=== PATIENT | male | born 1990 | race Caucasian/White ===

== ENCOUNTER 2021-12-07 01:54 | Emergency (ER) | payer MEDICAID ==
[~2021-12-07] VITALS: Ht 177.8 cm; Wt 90.7 kg
[2021-12-07 02:00] VITALS: BP 146/77
--- NOTE | 2021-12-07 02:00 | NUR ---
TO BED AMBULATORY
--- NOTE | 2021-12-07 02:15 | NUR ---
31 Y/O MALE BIB SELF, C/O TESTICLE PAIN X1 DAY. PATIENT PRESENTS TO ED WITH PAIN THAT RADIATES FROM TESTICLE TO EPIGASTRIC REGION. PT STATES IT FEELS LIKE A SCRAPING SENSATION, VOMITED X2 FROM THE PAIN (BLOOD NOTED IN SECOND VOMIT), PT HAS HAD A COUGH LAST WEEK. PT ALSO STATES HE BELIVES IT IS BECAUSE HE "PUSHES TOO HARD" WHEN HAVING A BM. PAIN RELIVED FROM HOT BATH. DENIES DIARRHEA; SKIN IS PINK/WARM/DRY; AAOX4 WITH EVEN AND STEADY GAIT; LUNGS CLEAR BL; HR EVEN AND REGULAR; PT DENIES ANY FEVER, CP, SOB, OR COUGH AT THIS TIME; PATIENT STATES PAIN OF 0/10 AT THIS TIME; VSS; PATIENT POSITIONED FOR COMFORT; HOB ELEVATED; BEDRAILS UP X1; BED DOWN. ER MD MADE AWARE OF PT STATUS. DENIES PMH, ALLERGIES, AND MEDS
[2021-12-07 02:38] LABS: APPEARANCE,URINE CLEAR (CLEAR); BILIRUBIN,URINE NEGATIVE (NEGATIVE); BLOOD, URINE NEGATIVE (NEGATIVE); COLOR,URINE YELLOW (YELLOW); LEUKOCYTE ESTERASE ,URINE NEGATIVE (NEGATIVE); NITRITE, URINE NEGATIVE (NEGATIVE); UGLUCOSE NEGATIVE (NEGATIVE)
[2021-12-07 02:51] LABS: RBC,URINE 0-5 /HPF (0-5); WBC,URINE 0-5 /HPF (0-5)
[2021-12-07] MEDS ORDERED: IBUPROFEN 800 MG TAB PO ONE (02:55)
--- NOTE | 2021-12-07 03:01 | NUR ---
ER AT BEDSIDE
--- NOTE | 2021-12-07 03:29 | NUR ---
Ultrasound at bedside.
[2021-12-07] MEDS ORDERED: NACL 0.9% 1,000 ML IV SCH (04:30)
--- NOTE | 2021-12-07 05:23 | NUR ---
PT RETURN FROM CT
--- NOTE | 2021-12-07 07:41 | NUR ---
GAVE TRANSFER OF CARE REPORT TO SAGE CALVO
[2021-12-07 08:39] LABS: BASOPHILS % (AUTO) 0.1 % (0.0-2.0); HEMATOCRIT 40.9 % (36-52); HEMOGLOBIN 13.9 g/dL (12.0-18.0); LYMPHOCYTES # (AUTO) 0.8 K/uL (2.0-11.5); LYMPHOCYTES % (AUTO) 5.1 % (20.5-51.1); MEAN CORPUSCULAR HEMOGLOBIN 30 pg (27-31); MEAN CORPUSCULAR HGB CONC 34 g/dL (33-37); MEAN CORPUSCULAR VOLUME 88.2 fL (80-94); MONOCYTES # (AUTO) 0.9 K/uL (0.8-1.0); MONOCYTES % (AUTO) 5.5 % (1.7-9.3); NEUTROPHILS # (AUTO) 13.9 K/uL (1.8-7.7); NEUTROPHILS % (AUTO) 89.3 % (42.2-75.2); PLATELET COUNT (AUTO) 264 K/uL (140-450); RED BLOOD CELL COUNT(AUTO) 4.63 MIL/uL (4.20-6.10); RED CELL DISTRIBUTION WIDTH 13.6 % (11.6-13.7); WHITE BLOOD COUNT (AUTO) 15.6 K/uL (4.8-10.8)
[2021-12-07 09:43] LABS: ALBUMIN 3.3 g/dL (3.4-5.0); ANION GAP 11.4 (8-16); CARBON DIOXIDE 24.3 mmol/L (21-32); CREATININE 1.1 mg/dL (0.6-1.3); POTASSIUM 3.7 mmol/L (3.5-5.1); TOTAL BILIRUBIN 0.9 mg/dL (0.0-1.0)
[2021-12-07] MEDS ORDERED: AMOX-999 PO (09:47)
[2021-12-07 10:16] VITALS: BP 118/73
== END 2021-12-07 10:16 | disposition home or self-care (01) ==
LOC: MED 01:54
DX: K57.92 Diverticulitis of intestine, part unspecified, without perforation or abscess without bleeding (principal); Z79.899 Other long term (current) drug therapy
CPT/HCPCS: 36415; 74176; 76870; 80053; 81001; 83605; 83690; 85025; 96360; 99285; J7030; Q0092